=== PATIENT | male | born 1980 | race African-American/Black ===

== ENCOUNTER 2018-03-25 13:27 | Inpatient (IN) | payer OTHER ==
[~2018-03-25] VITALS: Ht 185.4 cm; Wt 79.4 kg
[~2018-03-25 13:27] MED LIST: ACYC400T5 PO; BUSP5TAB20 PO; LAMO100T56 PO; PRAZ1 PO; QUET100T PO; QUET25TA PO; TOPI25 PO
[2018-03-25 14:01] LABS: BASOPHILS % (AUTO) 1.3 % (0.0-2.0); EOSINOPHILS % (AUTO) 6.8 % (1.0-6.0); HEMATOCRIT 47.3 % (41-53); HEMOGLOBIN 16.6 g/dL (13.5-17.5); LYMPHOCYTES # (AUTO) 2.5 K/uL (1.0-4.8); LYMPHOCYTES % (AUTO) 40.8 % (22.0-44.0); MEAN CORPUSCULAR HEMOGLOBIN 33.2 pg (26.0-34.0); MEAN CORPUSCULAR VOLUME 95 fL (80-100); MONOCYTES # (AUTO) 0.5 K/uL (0.1-1.0); MONOCYTES % (AUTO) 7.8 % (2.0-9.0); NEUTROPHILS # (AUTO) 2.7 K/uL (1.8-7.7); NEUTROPHILS % (AUTO) 43.3 % (40.0-70.0); PLATELET COUNT (AUTO) 311 K/uL (150-450); RED CELL DISTRIBUTION WIDTH 13.1 % (11.5-14.5)
[2018-03-25 14:10] LABS: ANION GAP 4 mmol/L (8-16); CALCIUM, TOTAL 8.4 mg/dL (8.8-10.5); CARBON DIOXIDE 32 mmol/L (22-29); CHLORIDE 103 mmol/L (98-107); CREATININE 1.33 mg/dL (0.60-1.30); GLOMERULAR FILTR. RATE CALC > 60 mL/min (>60); GLUCOSE,RANDOM 107 mg/dL (70-110); POTASSIUM 3.9 mmol/L (3.5-5.1); SODIUM SERUM 139 mmol/L (136-145); UREA NITROGEN, BLOOD 12 mg/dL (7-18)
[2018-03-25 14:15] LABS: ALANINE AMINOTRANSFERASE 28 U/L (12-78); ALKALINE PHOSPHATASE 70 U/L (46-116); ASPARTATE AMINOTRANSFERASE 21 U/L (15-37); BILIRUBIN,TOTAL 0.2 mg/dL (0.1-1.0); TOTAL PROTEIN, SERUM 7.5 g/dL (6.4-8.2)
[2018-03-25] MEDS ORDERED: HALOPERIDOL 5 MG TABLET PO ONE (15:00)
[2018-03-25] MEDS ORDERED: LORazepam 1 MG TABLET PO ONE (15:00)
[2018-03-25] MEDS ORDERED: DiphenhydrAMINE HCL 25 MG CAPSULE PO ONE (15:00)
[2018-03-25] MEDS ORDERED: LAMO25 PO (15:02)
[2018-03-25 16:34] LABS: AMPHET/METH SCREEN,URINE NEGATIVE (NEGATIVE); BARBITURATE SCREEN, URINE NEGATIVE (NEGATIVE); BENZODIAZEPINES SCREEN,URINE NEGATIVE (NEGATIVE); CANNABINOID SCREEN,URINE NEGATIVE (NEGATIVE); COCAINE SCREEN,URINE POSITIVE (NEGATIVE); METHADONE SCREEN, URINE NEGATIVE (NEGATIVE); OPIATE SCREEN,URINE NEGATIVE (NEGATIVE); PHENCYCLIDINE SCREEN,URINE NEGATIVE (NEGATIVE)
[2018-03-25 17:05] LABS: APPEARANCE,URINE CLOUDY (CLEAR); BILIRUBIN,URINE NEGATIVE (NEGATIVE); GLUCOSE, URINE (UA) NEGATIVE (NEGATIVE); KETONES,URINE TRACE mg/dL (NEGATIVE); LEUKOCYTE ESTERASE ,URINE NEGATIVE (NEGATIVE); NITRATE,URINE NEGATIVE (NEGATIVE); OCCULT BLOOD,URINE NEGATIVE (NEGATIVE); PH,URINE 6.5 (5.0-8.0); PROTEIN,URINE NEGATIVE (NEGATIVE); UROBILINOGEN,URINE 0.2 mg/dL (<=1.0)
[2018-03-25 18:01] VITALS: BP 128/84
[2018-03-25] MEDS: LORazepam 2 MG TABLET PO PRN (18:12)
[2018-03-25] MEDS: PRAZOSIN HCL 1 MG CAPSULE PO SCH (20:42)
[2018-03-25] MEDS: QUEtiapine FUMARATE 100 MG TABLET PO SCH (20:42)
[2018-03-26 01:43] VITALS: BP 120/81
[2018-03-26 08:27] VITALS: BP 140/89
[2018-03-26 08:30] LABS: CHOL/HDL RATIO 2.1 (4.2-7.3)
[2018-03-26] MEDS: LORazepam 2 MG TABLET PO PRN ×2 (08:59→16:16)
[2018-03-26] MEDS: QUEtiapine FUMARATE 25 MG TABLET PO SCH (08:59)
[2018-03-26] MEDS: ACYCLOVIR 800 MG TABLET PO SCH (08:59)
[2018-03-26] MEDS: TOPIRAMATE 25 MG TABLET PO SCH (08:59)
[2018-03-26] MEDS: NICOTINE 21 MG/24 HOUR PATCH TD SCH (08:59)
[2018-03-26] MEDS: BusPIRone HCL 5 MG TABLET PO SCH ×2 (08:59→16:16)
[2018-03-26] MEDS: LamoTRIgine 25 MG TABLET PO SCH ×2 (08:59→16:16)
[2018-03-26 16:47] VITALS: BP 144/81
[2018-03-26] MEDS: PRAZOSIN HCL 1 MG CAPSULE PO SCH (20:26)
[2018-03-26] MEDS: QUEtiapine FUMARATE 100 MG TABLET PO SCH (20:26)
[2018-03-27 04:55] VITALS: BP 128/86
[2018-03-27 08:38] VITALS: BP 140/85
[2018-03-27] MEDS: QUEtiapine FUMARATE 25 MG TABLET PO SCH (08:44)
[2018-03-27] MEDS: ACYCLOVIR 800 MG TABLET PO SCH (08:44)
[2018-03-27] MEDS: TOPIRAMATE 25 MG TABLET PO SCH (08:44)
[2018-03-27] MEDS: LamoTRIgine 25 MG TABLET PO SCH ×2 (08:44→16:02)
[2018-03-27] MEDS: NICOTINE 21 MG/24 HOUR PATCH TD SCH (08:45)
[2018-03-27] MEDS: BusPIRone HCL 5 MG TABLET PO SCH ×2 (08:45→16:02)
[2018-03-27] MEDS: LORazepam 2 MG TABLET PO PRN ×2 (09:10→16:02)
[2018-03-27 16:22] VITALS: BP 139/83
[2018-03-27] MEDS: QUEtiapine FUMARATE 100 MG TABLET PO SCH (20:02)
[2018-03-27] MEDS: PRAZOSIN HCL 1 MG CAPSULE PO SCH (20:02)
[2018-03-28 02:00] VITALS: BP 125/95
[2018-03-28] MEDS: ZOLPIDEM TARTRATE 10 MG TABLET PO PRN (02:26)
[2018-03-28 08:27] VITALS: BP 132/84
[2018-03-28] MEDS: QUEtiapine FUMARATE 25 MG TABLET PO SCH (08:29)
[2018-03-28] MEDS: ACYCLOVIR 800 MG TABLET PO SCH (08:29)
[2018-03-28] MEDS: IBUPROFEN 400 MG TABLET PO PRN (08:30)
[2018-03-28] MEDS: TOPIRAMATE 25 MG TABLET PO SCH (08:30)
[2018-03-28] MEDS: NICOTINE 21 MG/24 HOUR PATCH TD SCH (08:30)
[2018-03-28] MEDS: BusPIRone HCL 5 MG TABLET PO SCH ×2 (08:30→17:22)
[2018-03-28] MEDS: LamoTRIgine 25 MG TABLET PO SCH ×2 (08:30→17:22)
[2018-03-28] MEDS: ACETAMINOPHEN 325 MG TABLET PO PRN (10:33)
[2018-03-28] MEDS: LORazepam 2 MG TABLET PO PRN (15:30)
[2018-03-28] MEDS: HALOPERIDOL 5 MG TABLET PO PRN (15:30)
[2018-03-28 16:34] VITALS: BP 124/97
[2018-03-28] MEDS: PRAZOSIN HCL 1 MG CAPSULE PO SCH (20:16)
[2018-03-28] MEDS: QUEtiapine FUMARATE 100 MG TABLET PO SCH (20:16)
[2018-03-29] MEDS: ZOLPIDEM TARTRATE 10 MG TABLET PO PRN (00:08)
[2018-03-29 05:36] VITALS: BP 116/83
[2018-03-29] MEDS: BusPIRone HCL 5 MG TABLET PO SCH ×2 (08:42→16:10)
[2018-03-29] MEDS: LamoTRIgine 25 MG TABLET PO SCH ×2 (08:42→16:10)
[2018-03-29] MEDS: ACYCLOVIR 800 MG TABLET PO SCH (08:43)
[2018-03-29] MEDS: TOPIRAMATE 25 MG TABLET PO SCH (08:43)
[2018-03-29] MEDS: QUEtiapine FUMARATE 25 MG TABLET PO SCH (08:43)
[2018-03-29] MEDS: NICOTINE 21 MG/24 HOUR PATCH TD SCH (08:43)
[2018-03-29 08:47] VITALS: BP 138/80
[2018-03-29] MEDS: OLANZapine 5 MG TABLET PO SCH ×2 (10:47→16:10)
[2018-03-29 16:31] VITALS: BP 126/77
[2018-03-29] MEDS: PRAZOSIN HCL 1 MG CAPSULE PO SCH (20:14)
[2018-03-29] MEDS: QUEtiapine FUMARATE 100 MG TABLET PO SCH (20:14)
[2018-03-30 05:48] VITALS: BP 132/73
[2018-03-30] MEDS: TOPIRAMATE 25 MG TABLET PO SCH (08:39)
[2018-03-30] MEDS: LamoTRIgine 25 MG TABLET PO SCH ×2 (08:39→17:04)
[2018-03-30] MEDS: ACYCLOVIR 800 MG TABLET PO SCH (08:39)
[2018-03-30] MEDS: LORazepam 2 MG TABLET PO PRN (08:39)
[2018-03-30] MEDS: NICOTINE 21 MG/24 HOUR PATCH TD SCH (08:39)
[2018-03-30] MEDS: QUEtiapine FUMARATE 25 MG TABLET PO SCH (08:39)
[2018-03-30] MEDS: BusPIRone HCL 5 MG TABLET PO SCH ×2 (08:39→17:04)
[2018-03-30] MEDS: OLANZapine 5 MG TABLET PO SCH ×2 (08:39→17:04)
[2018-03-30 08:52] VITALS: BP 136/84
[2018-03-30 16:13] VITALS: BP 126/89
[2018-03-30] MEDS: PRAZOSIN HCL 1 MG CAPSULE PO SCH (20:40)
[2018-03-30] MEDS: QUEtiapine FUMARATE 100 MG TABLET PO SCH (20:40)
[2018-03-31 05:36] VITALS: BP 131/81
[2018-03-31 08:52] VITALS: BP 136/77
[2018-03-31] MEDS: ACYCLOVIR 800 MG TABLET PO SCH (09:31)
[2018-03-31] MEDS: TOPIRAMATE 25 MG TABLET PO SCH (09:31)
[2018-03-31] MEDS: OLANZapine 5 MG TABLET PO SCH ×2 (09:32→16:51)
[2018-03-31] MEDS: BusPIRone HCL 5 MG TABLET PO SCH ×2 (09:32→16:51)
[2018-03-31] MEDS: QUEtiapine FUMARATE 25 MG TABLET PO SCH (09:32)
[2018-03-31] MEDS: NICOTINE 21 MG/24 HOUR PATCH TD SCH (09:32)
[2018-03-31] MEDS: LamoTRIgine 25 MG TABLET PO SCH ×2 (09:32→16:51)
[2018-03-31 11:07] VITALS: BP 144/79
[2018-03-31] MEDS: LORazepam 2 MG TABLET PO PRN (11:08)
[2018-03-31 16:44] VITALS: BP 130/75
[2018-03-31 20:00] VITALS: BP 112/83
[2018-03-31] MEDS: PRAZOSIN HCL 2 MG CAPSULE PO SCH (20:06)
[2018-03-31] MEDS: QUEtiapine FUMARATE 100 MG TABLET PO SCH (20:06)
[2018-03-31] MEDS: ZOLPIDEM TARTRATE 10 MG TABLET PO PRN (21:54)
[2018-04-01 00:05] VITALS: BP 108/61
[2018-04-01 08:29] VITALS: BP 122/74
[2018-04-01] MEDS: OLANZapine 5 MG TABLET PO SCH ×2 (09:35→16:11)
[2018-04-01] MEDS: ACYCLOVIR 800 MG TABLET PO SCH (09:35)
[2018-04-01] MEDS: NICOTINE 21 MG/24 HOUR PATCH TD SCH (09:35)
[2018-04-01] MEDS: QUEtiapine FUMARATE 25 MG TABLET PO SCH (09:35)
[2018-04-01] MEDS: LamoTRIgine 25 MG TABLET PO SCH ×2 (09:35→16:11)
[2018-04-01] MEDS: BusPIRone HCL 5 MG TABLET PO SCH ×2 (09:35→16:10)
[2018-04-01] MEDS: TOPIRAMATE 25 MG TABLET PO SCH (09:35)
[2018-04-01 16:00] VITALS: BP 117/88
[2018-04-01] MEDS: IBUPROFEN 400 MG TABLET PO PRN (16:12)
[2018-04-01] MEDS: LORazepam 2 MG TABLET PO PRN (16:49)
[2018-04-01] MEDS: PRAZOSIN HCL 2 MG CAPSULE PO SCH (20:09)
[2018-04-01] MEDS: QUEtiapine FUMARATE 100 MG TABLET PO SCH (20:09)
[2018-04-01] MEDS: ZOLPIDEM TARTRATE 10 MG TABLET PO PRN (22:03)
[2018-04-02 00:44] VITALS: BP 124/92
[2018-04-02] MEDS: QUEtiapine FUMARATE 25 MG TABLET PO SCH (08:25)
[2018-04-02] MEDS: BusPIRone HCL 5 MG TABLET PO SCH ×2 (08:25→16:35)
[2018-04-02] MEDS: OLANZapine 5 MG TABLET PO SCH (08:25)
[2018-04-02] MEDS: LamoTRIgine 25 MG TABLET PO SCH ×2 (08:25→16:35)
[2018-04-02] MEDS: TOPIRAMATE 25 MG TABLET PO SCH (08:25)
[2018-04-02] MEDS: NICOTINE 21 MG/24 HOUR PATCH TD SCH (08:26)
[2018-04-02] MEDS: ACYCLOVIR 800 MG TABLET PO SCH (08:26)
[2018-04-02] MEDS: LORazepam 2 MG TABLET PO PRN (08:31)
[2018-04-02 08:58] VITALS: BP 130/85
[2018-04-02 16:34] VITALS: BP 138/94
[2018-04-02 20:07] VITALS: BP 130/88
[2018-04-02] MEDS: PRAZOSIN HCL 2 MG CAPSULE PO SCH (20:07)
[2018-04-02] MEDS: QUEtiapine FUMARATE 200 MG TABLET PO SCH (20:08)
[2018-04-02] MEDS: ZOLPIDEM TARTRATE 10 MG TABLET PO PRN (20:29)
[2018-04-03 02:15] VITALS: BP 100/114
[2018-04-03] MEDS: QUEtiapine FUMARATE 25 MG TABLET PO SCH (08:18)
[2018-04-03] MEDS: ACYCLOVIR 800 MG TABLET PO SCH (08:18)
[2018-04-03] MEDS: BusPIRone HCL 5 MG TABLET PO SCH ×2 (08:18→16:14)
[2018-04-03] MEDS: TOPIRAMATE 25 MG TABLET PO SCH (08:18)
[2018-04-03] MEDS: LamoTRIgine 25 MG TABLET PO SCH ×2 (08:18→16:14)
[2018-04-03] MEDS: NICOTINE 21 MG/24 HOUR PATCH TD SCH (08:19)
[2018-04-03 10:11] VITALS: BP 124/81
[2018-04-03] MEDS: MAG HYDROX/AL HYDROX/SIMETH ES 30 ML SUSPENSION UDCUP PO PRN (11:15)
[2018-04-03] MEDS: LORazepam 2 MG TABLET PO PRN ×2 (13:18→17:40)
[2018-04-03 16:20] VITALS: BP 127/80
[2018-04-03] MEDS: HALOPERIDOL 5 MG TABLET PO PRN (16:24)
[2018-04-03 21:06] VITALS: BP 122/70
[2018-04-03] MEDS: PRAZOSIN HCL 2 MG CAPSULE PO SCH (21:06)
[2018-04-03] MEDS: QUEtiapine FUMARATE 200 MG TABLET PO SCH (21:06)
[2018-04-03] MEDS: ZOLPIDEM TARTRATE 10 MG TABLET PO PRN (21:41)
[2018-04-04 00:02] VITALS: BP 120/81
[2018-04-04] MEDS: ACETAMINOPHEN 325 MG TABLET PO PRN (00:05)
[2018-04-04 08:55] VITALS: BP 118/78
[2018-04-04] MEDS: NICOTINE 21 MG/24 HOUR PATCH TD SCH (09:48)
[2018-04-04] MEDS: LamoTRIgine 25 MG TABLET PO SCH ×2 (09:48→17:04)
[2018-04-04] MEDS: QUEtiapine FUMARATE 25 MG TABLET PO SCH (09:48)
[2018-04-04] MEDS: TOPIRAMATE 25 MG TABLET PO SCH (09:49)
[2018-04-04] MEDS: ACYCLOVIR 800 MG TABLET PO SCH (09:49)
[2018-04-04] MEDS: BusPIRone HCL 5 MG TABLET PO SCH ×2 (09:49→17:04)
[2018-04-04 10:45] VITALS: BP 114/68
[2018-04-04] MEDS: LORazepam 2 MG TABLET PO PRN ×2 (10:47→17:04)
[2018-04-04 16:44] VITALS: BP 119/85
[2018-04-04] MEDS ORDERED: NICOTINE POLACRILEX 2 MG LOZENGE PO PRN (20:00)
[2018-04-04] MEDS: PRAZOSIN HCL 2 MG CAPSULE PO SCH (20:55)
[2018-04-04] MEDS: QUEtiapine FUMARATE 200 MG TABLET PO SCH (20:55)
[2018-04-04] MEDS: ZOLPIDEM TARTRATE 10 MG TABLET PO PRN (20:55)
[2018-04-05 00:56] VITALS: BP 115/86
[2018-04-05] MEDS: MAG HYDROX/AL HYDROX/SIMETH ES 30 ML SUSPENSION UDCUP PO PRN ×2 (00:58→10:07)
[2018-04-05] MEDS: LamoTRIgine 25 MG TABLET PO SCH ×2 (09:11→16:51)
[2018-04-05] MEDS: NICOTINE 21 MG/24 HOUR PATCH TD SCH (09:11)
[2018-04-05] MEDS: QUEtiapine FUMARATE 25 MG TABLET PO SCH (09:11)
[2018-04-05] MEDS: TOPIRAMATE 25 MG TABLET PO SCH (09:12)
[2018-04-05] MEDS: BusPIRone HCL 5 MG TABLET PO SCH ×2 (09:12→16:51)
[2018-04-05] MEDS: ACYCLOVIR 800 MG TABLET PO SCH (09:12)
[2018-04-05 09:17] VITALS: BP 114/85
[2018-04-05] MEDS: LORazepam 2 MG TABLET PO PRN ×2 (09:40→16:51)
[2018-04-05 16:21] VITALS: BP 126/68
[2018-04-05 20:48] VITALS: BP 138/84
[2018-04-05] MEDS: PRAZOSIN HCL 2 MG CAPSULE PO SCH (20:48)
[2018-04-05] MEDS: QUEtiapine FUMARATE 200 MG TABLET PO SCH (20:48)
[2018-04-05] MEDS: ZOLPIDEM TARTRATE 10 MG TABLET PO PRN (20:48)
[2018-04-06] MEDS: MAG HYDROX/AL HYDROX/SIMETH ES 30 ML SUSPENSION UDCUP PO PRN (01:40)
[2018-04-06 06:52] VITALS: BP 119/72
[2018-04-06 08:40] VITALS: BP 111/68
[2018-04-06] MEDS: ACYCLOVIR 800 MG TABLET PO SCH (09:21)
[2018-04-06] MEDS: TOPIRAMATE 25 MG TABLET PO SCH (09:22)
[2018-04-06] MEDS: QUEtiapine FUMARATE 25 MG TABLET PO SCH (09:22)
[2018-04-06] MEDS: NICOTINE 21 MG/24 HOUR PATCH TD SCH (09:22)
[2018-04-06] MEDS: LamoTRIgine 25 MG TABLET PO SCH (09:22)
[2018-04-06] MEDS: BusPIRone HCL 5 MG TABLET PO SCH (09:22)
[2018-04-06] MEDS ORDERED: QUET25TA PO (10:24)
== END 2018-04-06 13:40 | disposition home or self-care (01) | DRG 885 ==
LOC: EMS 13:29 → B2S 16:23
PROVIDERS: ADMIT Psychiatry & Neurology Psychiatry; ATTEND Psychiatry & Neurology Psychiatry
DX: F25.1 Schizoaffective disorder, depressive type (principal); R45.851 Suicidal ideations; E86.0 Dehydration; F41.9 Anxiety disorder, unspecified; F43.10 Post-traumatic stress disorder, unspecified; G43.909 Migraine, unspecified, not intractable, without status migrainosus; G47.00 Insomnia, unspecified; I10 Essential (primary) hypertension; F14.10 Cocaine abuse, uncomplicated; F17.200 Nicotine dependence, unspecified, uncomplicated; F19.10 Other psychoactive substance abuse, uncomplicated; Z79.899 Other long term (current) drug therapy; Z88.1 Allergy status to other antibiotic agents; Z91.14 Patient's other noncompliance with medication regimen; Z72.89 Other problems related to lifestyle; Z71.51 Drug abuse counseling and surveillance of drug abuser; Z71.6 Tobacco abuse counseling
CPT/HCPCS: 87081; 99285; G0480